=== PATIENT | female | born 1945 | race Caucasian/White ===

== ENCOUNTER 2019-09-08 13:45 | Outpatient (RCR) | payer MEDICARE, BC ==
[~2019-09-08 13:45] MED LIST: LIDOCAINE/PRILOCAINE 2.5-2.5% KIT ONE; MUPIROCIN 2% OINT 22 GM TUBE ONE; TRIAMCINOLONE ACET 0.1% CREAM 15 GM TUBE ONE
[2019-09-08] MEDS ORDERED: TRIAMCINOLONE ACET 0.1% CREAM 15 GM TUBE ONE (16:28)
== END 2019-09-15 ==
LOC: WCC 13:45
PROVIDERS: ATTEND Family Medicine Adult Medicine
DX: E11.9 Type 2 diabetes mellitus without complications (principal); S61.402A Unspecified open wound of left hand, initial encounter; S61.412A Laceration without foreign body of left hand, initial encounter; L24.4 Irritant contact dermatitis due to drugs in contact with skin; I10 Essential (primary) hypertension; E03.8 Other specified hypothyroidism; I25.10 Atherosclerotic heart disease of native coronary artery without angina pectoris